=== PATIENT | female | born 1970 ===

== ENCOUNTER 2021-01-29 07:24 | Day surgery (SDC) | payer OTHER ==
[~2021-01-29 07:24] MED LIST: ADULT LOW DOSE81 M1 PO; MILLIPRED5 MG PO; PLAQUENIL PO; VASOTEC5 MG; VASOTEC5 MG PO
== END 2021-01-29 11:30 | disposition home or self-care (01) ==
LOC: CIR.AMB 07:24
PROVIDERS: ATTEND Obstetrics & Gynecology Maternal & Fetal Medicine
DX: N83.291 Other ovarian cyst, right side (principal); N84.0 Polyp of corpus uteri; Z20.822 Contact with and (suspected) exposure to COVID-19